=== PATIENT | male | born 1985 | race Caucasian/White ===

== ENCOUNTER 2022-04-21 13:37 | Emergency (ER) | payer MEDICAID ==
[~2022-04-21] VITALS: Ht 203.2 cm; Wt 143.0 kg
[~2022-04-21 13:37] MED LIST: BACI3.5O2 EACHEYE; HYDR25TA4 PO; LIDO20SO16 PO
[2022-04-21 14:06] VITALS: BP 147/89
[2022-04-21] MEDS ORDERED: DOXY100T56 PO (16:43)
[2022-04-21] MEDS ORDERED: CEPH250T PO (16:43)
[2022-04-21] MEDS ORDERED: IBUP-1984 PO (16:44)
== END 2022-04-21 18:06 | disposition home or self-care (01) ==
LOC: ER 13:38
DX: L03.113 Cellulitis of right upper limb (principal); K08.89 Other specified disorders of teeth and supporting structures; Z79.899 Other long term (current) drug therapy; Z56.0 Unemployment, unspecified; Z59.00 Homelessness unspecified; Z79.1 Long term (current) use of non-steroidal anti-inflammatories (NSAID)
CPT/HCPCS: 99283

== ENCOUNTER 2025-05-01 10:32 | Emergency (ER) | payer MEDICAID ==
[~2025-05-01] VITALS: Ht 203.2 cm; Wt 143.0 kg
[2025-05-01 11:00] VITALS: BP 168/104; PULSE 80; RESP 16; TEMP 98.5; O2SAT 99
[2025-05-01] MEDS ORDERED: SULF1TAB49 PO (12:21)
--- NOTE | 2025-05-01 12:21 | Physician Documentation ---
History of Present Illness ~ Chief Complaint: Wound Stated Complaint: ABSCESS Time Seen by MD: 11:29 Primary Medical Doctor: NONE HPI This is a 39-year-old male who presents with an area of pain and swelling to posterior aspect of his left wrist, patient reports this has been present for approximately one-week and reports several days ago have began draining purulent material with pain and swelling decreasing after spontaneous drainage. Patient additionally reports a smaller area of pain and swelling to his right 3rd finger that has also spontaneously draining purulent material. Reports no fevers or chills. Patient reports no other acute symptoms or concerns. Tetanus within 5 years?: Yes Medication Reconciliation Allergies: Coded Allergies: cephalexin (Verified Allergy, Unknown, 05/01/25) Scheduled Bacitracin (Bacitracin), 1 APPLIC EACHEYE TID Hydrochlorothiazide (Hydrochlorothiazide), 1 TABLET PO DAILY Lidocaine Hcl (Xylocaine Viscous), 5 ML PO Q2H PRN SORE THROAT Sulfamethoxazole/Trimethoprim (Bactrim Ds Tablet), 1 TAB PO Q12H Past Medical History Past Medical History: No Pertinent History Past Surgical History: orthopedic surgeries Other Past Family History: NONE Alcohol Use: None Drug Use: methamphetamine Lives with: Spouse Lives In: Homeless Occupation: employed Review of Systems ROS As stated above in the HPI, otherwise all systems are reviewed and negative. Physical Exam Vital Signs: Temperature: 98.5, Source: Temporal, Heart Rate: 80, Respiratory Rate: 16, BP: 168/104, Pulse Oximetry: 99, Weight: 143.000 Oxygen Flow Rate: 0 Physical Exam VITALS: Reviewed and as above. GENERAL: Alert, nontoxic appearing, no apparent distress. RESPIRATORY: No increased work of breathing, no respiratory distress, speaking in full clear sentences SKIN: Left posterior wrist 3-1/2 cm round area of erythema and swelling with open area center with spontaneous purulent drainage, no induration, no fluctuance. Posterior aspect of right 3rd finger small area of erythema and swelling with a small area of spontaneous purulent discharge at center, swelling is not fusiform. Progress Results/Orders Results/Orders Vital Signs 05/01/25 11:00 Temp 98.5 Pulse 80 Resp 16 B/P (MAP) 168/104 Pulse Ox 99 O2 Flow Rate 0 Medical Decision Making Findings This 39-year-old male presented with an area of pain and swelling to the posterior aspect of his left wrist, physical exam was consistent with a spontaneously draining abscess, there was no fluctuance, minimal induration, and appear to be superficial not involving deeper tissues. It was reassuring the patient reported no fevers or other systemic symptoms and reported that the abscess was decreasing in size since it began to drain spontaneously the day before. The small area of pain and swelling to his right 3rd finger also appears to be a spontaneously draining furuncle without evidence of complicat ion. Given patient's history of MRSA patient will be treated with a course of Bactrim. Patient is otherwise well-appearing with remainder of physical exam benign, patient is hemodynamically stable and appropriate for outpatient follow up. Patient provided home care instructions, return to care precautions, and follow up instructions which he verbalized understanding of. Differential Dx:Considerations: Include: Abscess, Cellulitis, Other (Retained foreign body, laceration, myositis, flexor tenosynovitis, necrotizing fasciitis) Departure Time of Disposition: 12:20 Disposition: 01 HOME / SELF CARE / HOMELESS Impression: Primary Impression: Wound infection Condition: Improved Discharge Instructions: Skin Abscess Additional Instructions: Use warm moist compresses on the infected areas two to 3 times a day to promote drainage, otherwise keep the areas clean dry and covered. Please take antibiotics as prescribed. Please follow up with your primary care provider in the next few days. Please return to the emergency department for any new or worsening concerning symptoms. Referrals: NO PRIMARY CARE PROVIDER (PCP) Prescriptions Sulfamethoxazole/Trimethoprim (Bactrim Ds Tablet) 800 Mg-160 Mg Tablet 1 TAB PO Q12H for 10 Days, #20 TAB Prov: BRANDY NEWBERRY 05/01/25 Education Educated: Patient Educated regarding: diagnosis, treatment, prognosis, need for follow up Signature Scribe Signature: No Scribe Attestation: The note accurately reflects work and decisions made by me.KRISHAN Ortega 05/02/25 09:48 BRANDY NEWBERRY May 01, 2025 12:21
== END 2025-05-01 12:38 | disposition home or self-care (01) ==
LOC: ER 10:33
DX: L02.414 Cutaneous abscess of left upper limb (principal); Z88.1 Allergy status to other antibiotic agents; Z88.2 Allergy status to sulfonamides
CPT/HCPCS: 99283

== ENCOUNTER 2025-05-03 21:36 | Emergency (ER) | payer MEDICAID ==
[~2025-05-03] VITALS: Ht 203.2 cm; Wt 115.0 kg
[~2025-05-03 21:36] MED LIST changes: +SULF1TAB49 PO
[2025-05-04] MEDS: ketorolac trometh 15mg/ml vial 15 MG/ML ML IV ONE (04:07)
[2025-05-04 04:50] LABS: MEAN PLATELET VOLUME 6.4 FL (7.4-10.4); RED CELL DISTRIBUTION WIDTH 13.5 % (11.5-14.5)
[2025-05-04] MEDS: vancomycin/NS 1 GM ADD-VANTAGE 250 ML IV SCH (04:59)
[2025-05-04 05:07] LABS: CREATININE 1.19 MG/DL (0.60-1.10); TOTAL CARBON DIOXIDE 29.2 MMOL/L (24-32); eCRCL 111 ML/MIN; eGFR 67 ML/MIN
--- NOTE | 2025-05-04 05:15 | Physician Documentation ---
History of Present Illness ~ Chief Complaint: Wound Stated Complaint: MED REQUEST Time Seen by MD: 03:27 Primary Medical Doctor: NONE Mode of Arrival: POV, Ambulatory HPI 39-year-old male presenting with a wound to his left wrist He tells me that over the past several days he has had a wound that opened up on his left wrist. It was draining clear fluid. It has become more red and swollen and painful. He also has several small pustules surrounding it. Tells me he was seen in the emergency department and prescribed antibiotics, but was not able to get them due to insurance issues. Today, he reports feeling generally ill including subjective fevers and malaise. His partner is concerned about a blood infection. Tetanus within 5 years?: Yes Medication Reconciliation Allergies: Coded Allergies: cephalexin (Verified Allergy, Unknown, 05/03/25) Scheduled Bacitracin (Bacitracin), 1 APPLIC EACHEYE TID Hydrochlorothiazide (Hydrochlorothiazide), 1 TABLET PO DAILY Lidocaine Hcl (Xylocaine Viscous), 5 ML PO Q2H PRN SORE THROAT Sulfamethoxazole/Trimethoprim (Bactrim Ds Tablet), 1 TAB PO Q12H Past Medical History Past Medical History: No Pertinent History Past Surgical History: orthopedic surgeries Other Past Family History: NONE Alcohol Use: None Drug Use: methamphetamine Lives with: Spouse Lives In: Homeless Occupation: employed Review of Systems Constitutional: Reports: fever, malaise Integumentary: Reports: wound(s) Physical Exam Vital Signs: Temperature: 98.6, Source: Oral, Heart Rate: 84, Respiratory Rate: 16, BP: 155/103, Pulse Oximetry: 98, Weight: 115.000 Physical Exam General: This is a nontoxic-appearing young man, partner at bedside HEENT: Atraumatic, oropharynx appears dry Heart: Regular rate and rhythm, normal-appearing peripheral perfusion Lungs: normal work of breathing, normal oxygen saturation on room air Extremities: Warm and well-perfused Left upper extremity: The patient has an open wound over the dorsal wrist, with an ulceration measuring approximately 1.5 cm, with clear fluid draining. No area of fluctuance. There is surrounding erythema and induration and several small pustules just distal to this wound. It does not extend to the hand. There was no streaking redness up the arm. Neuro: Alert and oriented Psychiatric: Appears tired but is cooperative with exam Progress Results/Orders Results/Orders Orders - MARCOS LLAMAS MD [place] (05/04/25 03:34) Culture Blood (05/04/25 03:34) Vancomycin/Ns 1 Gm Add-[place] (Vancomyc (05/04/25 05:00) Completed Orders - MARCOS LLAMAS MD Cbc/Diff (05/04/25 03:34) CMP (05/04/25 03:34) Ketorolac Trometh 15mg/Ml Vial (Toradol (05/04/25 03:35) Vancomycin*Pharmacy To Dose* (Vancomycin (05/04/25 04:35) Medications Received in ER Medications (Trade) Dose Ordered Sig/Renae Route PRN Reason Start Time Stop Time Status Last Admin Dose Admin (Toradol injection) 15 mg ONCE ONCE IV 05/04/25 03:35 05/04/25 03:36 DC 05/04/25 04:07 15 MG (Vancomycin Pharmacy To Dose) 1 unit ONCE ONCE IV 05/04/25 04:35 05/04/25 04:36 DC 05/04/25 05:15 1 UNIT Vancomycin HCl 250 ml @ 125 mls/hr Q2H IV 05/04/25 05:00 05/04/25 08:59 05/04/25 04:59 125 MLS/HR Vital Signs 05/03/25 05/04/25 05/04/25 05/04/25 21:38 01:31 01:34 03:00 Temp 97.6 Pulse 102 90 77 Resp 16 18 16 18 B/P (MAP) 211/106 147/95 (112) 142/86 (104) Pulse Ox 98 98 99 05/04/25 05/04/25 05/04/25 04:07 04:46 04:52 Temp 98.6 Pulse 85 84 Resp 14 18 16 B/P (MAP) 155/103 (120) 155/103 (120) Pulse Ox 99 98 Laboratory Tests Test 05/04/25 04:00 White Blood Count 7.2 Red Blood Count 4.19 L Hemoglobin 13.3 L Hematocrit 38.7 L Mean Corpuscular Volume 92.2 Mean Corpuscular Hemoglobin 31.6 H Mean Corpuscular Hemoglobin Concent 34.3 Red Cell Distribution Width 13.5 Platelet Count 338 Mean Platelet Volume 6.4 L Neutrophils (%) (Auto) 53.0 Lymphocytes (%) (Auto) 34.2 Monocytes (%) (Auto) 9.1 Eosinophils (%) (Auto) 3.0 Basophils (%) (Auto) 0.7 Neutrophils # (Auto) 3.8 Lymphocytes # (Auto) 2.5 Monocytes # (Auto) 0.7 Eosinophils # (Auto) 0.2 Basophils # (Auto) 0.1 CBC Comment Sodium Level 141 Potassium Level 3.9 Chloride Level 107 Carbon Dioxide Level 29.2 Anion Gap 5 L Blood Urea Nitrogen 15 Creatinine 1.19 H Estimated GFR/1.73 m2 67 BUN/Creatinine Ratio 12.6 Glucose Level 110 H Calcium Level 8.4 L Total Bilirubin 0.5 Aspartate Amino Transf (AST/SGOT) 14 Alanine Aminotransferase (ALT/SGPT) 13 Alkaline Phosphatase 77 Total Protein 7.0 Albumin 3.1 L Globulin 3.9 Albumin/Globulin Ratio 0.8 L Chemistry Comments Medical Decision Making Differential Dx:Considerations: Include: Abscess, Cellulitis Additional Comment Differential includes sepsis or bacteremia Assessment The patient presents with a wound in his arm, which on exam appears consistent with an abscess that spontaneously drained and no surrounding cellulitis. He reports fevers and systemic symptoms as well concerning for possible bacteremia. An IV was placed and labs were obtained. This shows no significant leukocytosis. He is not febrile here, and vitals are otherwise normal. Blood cultures pending. He was given IV antibiotics. Wound care was performed and his wound was cleaned and dressed. He will be discharged with antibiotics, wound care instructions, and return precautions given. Departure Disposition: HOME / SELF CARE / HOMELESS Impression: Primary Impression: Wound cellulitis Condition: Stable Discharge Instructions: Cellulitis, Adult Referrals: NO PRIMARY CARE PROVIDER (PCP) Education Educated: Patient, Family Educated regarding: diagnosis, treatment, need for follow up Signature Scribe Signature: na Attestation: MARCOS Cee MD May 04, 2025 05:15
[2025-05-04] MEDS ORDERED: SULF1TAB49 PO (05:20)
[2025-05-04 07:47] VITALS: BP 143/100; PULSE 96; RESP 16; TEMP 98.6; O2SAT 96
== END 2025-05-04 07:10 | disposition home or self-care (01) ==
LOC: ER 21:36
DX: L03.114 Cellulitis of left upper limb (principal); R53.81 Other malaise; R50.9 Fever, unspecified
CPT/HCPCS: 36415; 80053; 85025; 87040; 96365; 96366; 96375; 99285; J1885; J3373; J7030

== ENCOUNTER 2025-06-25 09:42 | Emergency (ER) | payer MEDICAID ==
[~2025-06-25] VITALS: Ht 203.2 cm; Wt 142.6 kg
[~2025-06-25 09:42] MED LIST changes: -SULF1TAB49 PO
[2025-06-25 09:58] VITALS: BP 159/100; PULSE 89; RESP 18; O2SAT 98
[2025-06-25] MEDS ORDERED: VALS40TA11 PO (10:04)
--- NOTE | 2025-06-25 10:04 | Physician Documentation ---
History of Present Illness General Stated Complaint: HIGH BLOOD PRESSURE MED CLEARANCE Time Seen by MD: 09:59 Primary Medical Doctor: NONE History of Present Illness Initial Comments 40-year-old male presents to the emergency department at the request of [facility] for medication refill of valsartan 50 mg. Has known history of poorly controlled high blood pressure. He is asymptomatic at this time. Additionally the seeking medical clearance to participate in the program. No active chest pain, headache, nausea or vomiting, blurry vision recent reported near-syncope or dependent edema. Reports while on has been location he does well. Medication Reconciliation Allergies: Coded Allergies: cephalexin (Verified Allergy, Unknown, 06/25/25) Scheduled Bacitracin (Bacitracin), 1 APPLIC EACHEYE TID Hydrochlorothiazide (Hydrochlorothiazide), 1 TABLET PO DAILY Lidocaine Hcl (Xylocaine Viscous), 5 ML PO Q2H PRN SORE THROAT Valsartan (Valsartan), 1 TAB PO DAILY Past Medical History Past Medical History: No Pertinent History Past Surgical History: orthopedic surgeries Other Past Family History: NONE Alcohol Use: None Drug Use: methamphetamine Lives with: Spouse Lives In: Homeless Occupation: employed Review of Systems All Other Systems at this time: Reviewed and Negative Physical Exam Physical Exam Vital Signs: RN Vital Signs have been reviewed: Yes General Appearance: alert, WD/WN, no apparent distress Head: normal inspection Face: normal inspection Pupils/EOM/Fundus: PERRLA Neck: non-tender Chest: no accessory muscle use Cardiovascular: normal peripheral pulses Gastrointestinal: normal palpation Back: normal inspection Extremities: normal range of motion Neurologic: oriented x4, sports physiotherapist II-XII nml as tested Motor / Sensory: no motor deficit, no sensory deficit Psychiatric: normal mood/affect Skin: normal color Progress Results/Orders Results/Orders Vital Signs 06/25/25 09:58 Temp 98.3 Pulse 89 Resp 18 B/P (MAP) 159/100 Pulse Ox 98 O2 Flow Rate 0 Medical Decision Making Additional information obtaine: N/A Findings 40-year-old male requiring medical clearance to participate in [facility]. Medication refill for valsartan 40 mg provided to patient. Discharged with the emergency department without clinical suspicion for hypertensive urgency and/or emergency or end-organ damage. Differential Diagnosis Hypertensive urgency, hypertensive emergency, end-organ damage, medication refill. For medication compliance Departure Disposition: HOME / SELF CARE / HOMELESS Impression: Primary Impression: Hypertension Qualified Codes: I10 - Essential (primary) hypertension Additional Impression: Medication refill Condition: Stable Additional Instructions: You have received medical clearance to participate in the program. Please obtain blood pressure medications and take as prescribed. Please establish with local primary care physician. Referrals: NO PRIMARY CARE PROVIDER (PCP) Prescriptions Valsartan (Valsartan) 40 Mg Tablet 1 TAB PO DAILY for 30 Days, #30 TAB 0 Refills Prov: MARCOS WHITAKER 06/25/25 Education Educated: Patient Educated regarding: diagnosis, treatment, prognosis, need for follow up Signature Scribe Signature: . Attestation: . MACROS WHITAKER Jun 25, 2025 10:04
[2025-06-25 10:14] VITALS: TEMP 98.3
== END 2025-06-25 10:15 | disposition home or self-care (01) ==
LOC: ER 09:43
DX: I10 Essential (primary) hypertension (principal); Z76.0 Encounter for issue of repeat prescription; Z88.1 Allergy status to other antibiotic agents
CPT/HCPCS: 99282

== ENCOUNTER 2025-07-04 13:07 | Emergency (ER) | payer MEDICAID ==
[~2025-07-04] VITALS: Ht 203.2 cm; Wt 144.2 kg
[~2025-07-04 13:07] MED LIST changes: +VALS40TA11 PO
[2025-07-04 13:10] VITALS: BP 140/79; PULSE 90; RESP 18; TEMP 97.2; O2SAT 97
== END 2025-07-04 14:44 | disposition left against medical advice (07) ==
LOC: ER 13:08
DX: Z00.00 Encounter for general adult medical examination without abnormal findings (principal); M25.511 Pain in right shoulder
CPT/HCPCS: 99281

== ENCOUNTER 2025-07-04 15:22 | Emergency (ER) | payer MEDICAID ==
[~2025-07-04] VITALS: Ht 203.2 cm; Wt 142.3 kg
[2025-07-04 15:26] VITALS: BP 144/87; PULSE 82; TEMP 97; O2SAT 99
--- NOTE | 2025-07-04 15:39 | Physician Documentation ---
History of Present Illness ~ Chief Complaint: Medical Clearance Stated Complaint: MED CLEARANCE Time Seen by MD: 15:31 OK to notify your PCP?: Yes Primary Medical Doctor: NONE Source: patient Mode of Arrival: POV Exam Limitations: no limitations HPI Requesting medical clearance for [facility]. He reports that his blood pressure was in the 160s systolic for them and they take it every morning. He denies any shortness the breath, chest pain, headache or bloody noses. He does take blood pressure medication and has been taking it as prescribed. Tetanus within 5 years?: Yes Medication Reconciliation Allergies: Coded Allergies: cephalexin (Verified Allergy, Unknown, 07/04/25) Scheduled Bacitracin (Bacitracin), 1 APPLIC EACHEYE TID Hydrochlorothiazide (Hydrochlorothiazide), 1 TABLET PO DAILY Lidocaine Hcl (Xylocaine Viscous), 5 ML PO Q2H PRN SORE THROAT Valsartan (Valsartan), 1 TAB PO DAILY Past Medical History Past Medical History: No Pertinent History Past Surgical History: orthopedic surgeries Other Past Family History: NONE Alcohol Use: None Drug Use: methamphetamine Lives with: Spouse Lives In: Homeless Occupation: employed Review of Systems All Other Systems at this time: Reviewed and Negative Physical Exam Vital Signs: RN Vital Signs have been reviewed: Yes, Temperature: 97.0, Source: Temporal, Heart Rate: 82, Respiratory Rate: 18, BP: 144/87, Pulse Oximetry: 99, Weight: 142.300 Oxygen Flow Rate: 0 Pulse Oximetry Reflects: adequate oxygenation Physical Exam General: Alert, no distress. HEENT: No injection, moist mucous membranes. Neck: Full range of motion. Respiratory: No respiratory distress, equal chest rise and fall. Chest: No accessory muscle use. Cardiovascular: Regular rate and rhythm. Gastrointestinal: Nondistended. Extremities: Normal range of motion, no deformity. Neurologic: Oriented x4. Psychiatric: Normal mood and affect. Skin: Normal color, warm and dry. Progress Results/Orders Reviewed/noted all lab results: Yes Results/Orders Vital Signs 07/04/25 07/04/25 15:26 16:44 Temp 97.0 Pulse 82 Resp 18 16 B/P (MAP) 144/87 Pulse Ox 99 O2 Flow Rate 0 Medical Decision Making Additional information obtaine: old records Findings Requesting medical clearance for [facility] due to his blood pressure. His blood pressure is stable in the 140s systolic. He does take blood pressure medication. Discharge instructions given. Denies any cardiac symptoms. Differential Dx:Considerations: Include: Intoxication-Alcohol, Intoxication- Other drug, Substance abuse disorder, Alcohol withdrawl syndrom, Encephalopathy Departure Disposition: HOME / SELF CARE / HOMELESS Impression: Primary Impression: General medical exam Condition: Stable Discharge Instructions: Medical Screening Exam Additional Instructions: You are medically cleared to continue treatment with [facility]. Blood pressure today was 144/87 and you are asymptomatic. Referrals: NO PRIMARY CARE PROVIDER (PCP) Education Educated: Patient Educated regarding: diagnosis, treatment, prognosis, need for follow up Additional Comment Medical Screen Exam This patient recieved a medical screening examination. After reviewing the individual's medical complaints with presenting symptoms and performing an appropriate physical examination, it was determined that no immediate life- threatening emergency medical condition is present. This individual is also not a women having contractions. Signature Scribe Signature: . Attestation: Scribed for Juanita Lazo Binding Nicker by Juanita Link NP . 07/04/25 19:15 Parts of this note were created using [place] voice recognition software program. While efforts were made to correct any mistakes made by this voice recognition software program, nonsensical phrases may remain in this note. In addition, there may be errors and syntax, grammar, content and spelling. JUANITA LAZO ACTIVITIES ATTENDANT Jul 04, 2025 15:39
[2025-07-04 16:44] VITALS: RESP 16
== END 2025-07-04 16:45 | disposition home or self-care (01) ==
LOC: ER 15:22
DX: Z00.00 Encounter for general adult medical examination without abnormal findings (principal); Z88.1 Allergy status to other antibiotic agents
CPT/HCPCS: 99282

== ENCOUNTER 2025-08-02 09:12 | Emergency (ER) | payer MEDICAID ==
[~2025-08-02] VITALS: Ht 203.2 cm; Wt 149.5 kg
[2025-08-02] MEDS ORDERED: ALBU8HFA INH (11:05)
[2025-08-02] MEDS ORDERED: VALS40TA11 PO (11:05)
[2025-08-02] MEDS ORDERED: KEN0.1O TOP (11:05)
--- NOTE | 2025-08-02 11:06 | Physician Documentation ---
History of Present Illness ~ Chief Complaint: Hypertension Stated Complaint: MULTIPLE MED COMPLAINTS Time Seen by MD: 10:25 Primary Medical Doctor: NONE Source: patient Mode of Arrival: POV Exam Limitations: no limitations HPI 40-year-old male at [facility] was here for hypertension needing refill of his blood pressure medication valsartan he has not had for weeks he has been [facility]. Patient also had to change rooms for possible bedbug exposure with 3 small areas of potential bites to his left buttock and left shoulder. Concerned for upper respiratory infection. Cold cough congestion x2 days Medication Reconciliation Allergies: Coded Allergies: cephalexin (Verified Allergy, Unknown, 08/02/25) Scheduled Bacitracin (Bacitracin), 1 APPLIC EACHEYE TID Hydrochlorothiazide (Hydrochlorothiazide), 1 TABLET PO DAILY Lidocaine Hcl (Xylocaine Viscous), 5 ML PO Q2H PRN SORE THROAT Valsartan (Valsartan), 1 TAB PO DAILY Past Medical History Past Medical History: No Pertinent History Past Surgical History: orthopedic surgeries Other Past Family History: NONE Alcohol Use: None Drug Use: methamphetamine Lives with: Spouse Lives In: Homeless Occupation: employed Review of Systems All Other Systems at this time: Reviewed and Negative Respiratory: Reports: see HPI Integumentary: Reports: see HPI Physical Exam Vital Signs: RN Vital Signs have been reviewed: Yes, Temperature: 98.3, Source: Temporal, Heart Rate: 80, Respiratory Rate: 16, BP: 159/95, Pulse Oximetry: 98, Weight: 149.500 Oxygen Flow Rate: 0 Physical Exam General: Alert, no apparent distress. HEENT: moist mucous membranes. Neck: Full range of motion. Respiratory: No respiratory distress speaking in full sentences spasm with cough otherwise clear Chest: No accessory muscle use. Cardiovascular: Appears well perfused Neurologic: Oriented x4. Psychiatric: Normal mood and affect. Skin: Normal color, warm and dry. No edema, no ecchymosis. Three small erythematous papules to the left buttocks and 1 small to the left shoulder blade Progress Results/Orders Results/Orders Vital Signs 08/02/25 09:33 Temp 98.3 Pulse 80 Resp 16 B/P (MAP) 159/95 Pulse Ox 98 O2 Flow Rate 0 Medical Decision Making Additional information obtaine: old records Findings Out of his medication valsartan will refilling provide 1 dose here prior to discharge. Steroid cream for the areas that could be bites. Patient has switched rooms and covered his bed. Patient has cough Differential Dx:Considerations: Include HTN, essential Departure Time of Disposition: 11:04 Disposition: 01 HOME / SELF CARE / HOMELESS Impression: Primary Impression: Benign hypertension Additional Impressions: Respiratory infection Bug bite Condition: Stable Discharge Instructions: Hypertension, Adult Additional Instructions: Medication as prescribed and follow up with primary care for further treatment and refills of your medication for hypertension Referrals: NO PRIMARY CARE PROVIDER (PCP) Prescriptions albuterol inhaler (Pro-Air Inhaler) 8.5 Gm Inhaler 2 PUFFS INH Q4HPRN PRN for wheezing for 30 Days, #18 GM Prov: LORENA VALENTIN NP 08/02/25 Triamcinolone Acetonide 0.1% Crm* (Kenalog 0.1% Crm*) 1 Applic Tube 1 APPLIC TOP Q12H for 10 Days, #80 GM Prov: LORENA VALENTIN NP 08/02/25 Valsartan (Valsartan) 40 Mg Tablet 1 TAB PO DAILY for 30 Days, #30 TAB 0 Refills Prov: LORENA VALENTIN NP 08/02/25 Education Educated: Patient Educated regarding: diagnosis, treatment, need for follow up Signature Scribe Signature: No scribe Attestation: The note accurately reflects work and decisions made by me.Lorena Valentin - KRISHAN 08/02/25 11:06 LORENA VALENTIN NP Aug 02, 2025 11:06
[2025-08-02 11:29] VITALS: BP 163/114; PULSE 79; RESP 16; TEMP 98.3; O2SAT 95
== END 2025-08-02 11:30 | disposition home or self-care (01) ==
LOC: ER 09:13
DX: S30.860A Insect bite (nonvenomous) of lower back and pelvis, initial encounter (principal); S40.262A Insect bite (nonvenomous) of left shoulder, initial encounter; I10 Essential (primary) hypertension; J98.8 Other specified respiratory disorders; F15.90 Other stimulant use, unspecified, uncomplicated; Z88.1 Allergy status to other antibiotic agents; Z79.899 Other long term (current) drug therapy; Z59.00 Homelessness unspecified; W57.XXXA Bitten or stung by nonvenomous insect and other nonvenomous arthropods, initial encounter; Y93.89 Activity, other specified; Y92.89 Other specified places as the place of occurrence of the external cause; Y99.8 Other external cause status
CPT/HCPCS: 99283